=== PATIENT | female | born 1935 | race Caucasian/White ===

== ENCOUNTER 2019-05-18 09:59 | Outpatient (CLI) | payer MEDICARE, SELFPAY ==
--- NOTE | ~2019-05-18 | NM_ITS ---
EXAMINATION: NM daniella stress w perfusion DATE: 05/18/2019 13:13 INDICATION: Dyspnea on exertion. TECHNIQUE: Rest images were obtained following intravenous administration of 9.4 mCi Tc99m tetrofosmi n (Myoview). The patient was infused intravenously with Lexiscan (regadenoson). Then, 27.5 mCi Tc99m tetrofosmin (Myoview) was administered intravenously, and stress images were obtained. Data was recon structed into short axis and horizontal and vertical long axis SPECT images. Gated SPECT images were also obtained. COMPARISON: None. FINDINGS: There is no definite reversible or fixed perfusion abnormality to suggest ischemia or infar ction. There is no segmental wall motion abnormality. Left ventricular ejection fraction measures > 70%. IMPRESSION: 1. No definite ischemia or infarct. 2. Normal left ventricular ejection fraction measuring >70%. Reviewed, dictated and finalized at location A. UCTION CONTROL PLANNER
--- NOTE | 2019-05-18 10:56 | EST_ITS ---
Patient Info Name: Sadaf Pryor Age: 84 years : 1935 Gender: Female Ht: 64 in Wt: 138 lbs BSA: 1.69 m2 Exam Date: 05/18/2019 11:55 AM Exam Location: [facility] Stress Patient Status: Outpatient Admit Date: 05/18/2019 Staff Ordering Physician: Jas Graham PA-C Attending Provider: Jas Graham PA-C Exercise Technologist: Viki Little RDCS Exercise Physician: Golden Elam DO Exam Type: CA stress daniella w NM Study Info Indications R06.00 - Dyspnea, unspecified A regadenoson stress test was performed. Summary 1. 1. Negative Lexiscan stress test for ischemic ST changes by ECG criteria. 2. 2. Baseline hypertension. 3. 3. Nuclear scan to follow and will be reported separately. Please correlate with it. 4. 4. Patient informed of the above results. Protocol: Lexiscan Stress ECG Details Stage: REST Duration (min): 8 min : 20 sec HR (bpm): 67 SBP (mmHg): 167 DBP (mmHg): 89 Stage: REST Duration (min): 8 min : 54 sec HR (bpm): 70 SBP (mmHg): 167 DBP (mmHg): 89 Stage: STAGE 1 Duration (min): 1 min : 0 sec HR (bpm): 82 SBP (mmHg): 167 DBP (mmHg): 89 Stage: RECOVERY Duration (min): 1 min : 0 sec HR (bpm): 95 SBP (mmHg): 167 DBP (mmHg): 89 Stage: RECOVERY Duration (min): 2 min : 0 sec HR (bpm): 93 SBP (mmHg): 140 DBP (mmHg): 77 Stage: RECOVERY Duration (min): 3 min : 0 sec HR (bpm): 90 SBP (mmHg): 144 DBP (mmHg): 79 Stage: RECOVERY Duration (min): 3 min : 25 sec HR (bpm): 95 SBP (mmHg): 144 DBP (mmHg): 79 Rest HR: 70 bpm Peak HR: 99 bpm Rest Sys BP: 167 mmHg Peak Sys BP: 144 mmHg Max Pred HR: 136 bpm % Max Pred HR: 73 % Target HR: 116 bpm Max RPP: 14,256 bpm*mmHg Termination Reason: Completed protocol Cardiac Symptoms: Shortness of breath Total Time: 1 min : 0 sec Rest Bhakta BP: 89 mmHg Peak Bhakta BP: 79 mmHg Total Dose: 0.4 mg Resting ECG Sinus rhythm. Stress ECG No ST changes. Arrhythmias None. Report Signatures
== END 2019-05-18 10:00 | disposition home or self-care (01) ==
PROVIDERS: PCP Family Medicine; Visit Provider Physician Assistant Medical
DX: R06.02 Shortness of breath (principal); I10 Essential (primary) hypertension
CPT/HCPCS: 78452; 93017; A9502; J2785

== ENCOUNTER 2019-12-08 13:14 | Outpatient (CLI) | payer MEDICARE, SELFPAY ==
--- NOTE | ~2019-12-08 | DEXA_ITS ---
Bone Density Report Name: Sadaf Pryor Age: 84 Sex: Female Ethnicity: White Date of : 1935 Indication: postmenopausal osteoporosis; Referring Provider: RAZIA PEDERSEN Study: Bone densitometry was performed. Exam Date: December 08, 2019 Accession number: [id number] Bone Density: Region BMD T-score Z-score Classification AP Spine (L1-L4) 0.819 -2.1 0.8 Osteopenia Femoral Neck (Left) 0.671 -1.6 0.9 Osteopenia Total Hip (Left) 0.796 -1.2 1.1 Osteopenia Total Hip Bilateral Avg 0.794 -1.2 1.1 Osteopenia Femoral Neck (Right) 0.651 -1.8 0.7 Osteopenia Total Hip (Right) 0.790 -1.2 1.1 Osteopenia World Health Organization criteria for BMD impression classify patients as: Normal (T-score at or above -1.0), Osteopenia (T-score between -1.0 and -2.5), or Osteoporosis (T-score at or below -2.5). 10-year Fracture Risk(1): Major Osteoporotic Fracture 14% Hip Fracture 4.1% Reported Risk Factors: [place] (), Neck BMD=0.651, BMI=23.7 (1) FRAX(R) Version 3.08. Fracture probability calculated for an untreated patient. Fracture probability may be lower if the patient has received treatment. Previous Exams: Region Exam Age BMD T-score BMD Change BMD Change Date g/cm2 vs Baseline vs Previous AP Spine(L1-L4) 12/08/2019 84 0.819 -2.1 0.033(4.3%)* 0.052(6.8%)* 02/20/2013 78 0.766 -2.6 -0.019(-2.4%) -0.019(-2.4%) 02/18/2011 76 0.785 -2.4 Total Hip(Left) 12/08/2019 84 0.796 -1.2 -0.100(-11.2%) -0.055(-6.5%)* 02/20/2013 78 0.851 -0.7 -0.045(-5.0%)* -0.045(-5.0%)* 02/18/2011 76 0.896 -0.4 Total Hip(Right) 12/08/2019 84 0.790 -1.2 0.000(0.0%) 0.009(1.2%) 02/20/2013 78 0.781 -1.3 -0.009(-1.1%) -0.009(-1.1%) 02/18/2011 76 0.789 -1.3 *Denotes significance at 95% confidence level, LSC for AP Spine = 0.022 g/cm2, LSC for Total Hip = 0.027 g/cm2 Clinical Information Provided by Patient: Has used the following medications: Fosamax (i.e. alendronate), Vitamin D, Calcium Patient maximum height was 64 Menopause Age: 50 Drinks caffeinated beverages Onset of menses at age 13 Number of children 2 Impression: The patient has low bone mass, based on the Total Spine T-score. The patient has an estimated ten-year risk of hip fracture of 4.1% and an estimated ten-year risk of major fracture of 14%, based on the WHO FRAX algorithm. The BMD for the Total Hip(Left) decreased, changing by -6.5% s
== END 2019-12-08 13:15 | disposition home or self-care (01) ==
PROVIDERS: PCP Family Medicine; Visit Provider Family Medicine
DX: Z78.0 Asymptomatic menopausal state (principal); M85.89 Other specified disorders of bone density and structure, multiple sites
CPT/HCPCS: 77080

== ENCOUNTER → 2020-04-11 10:55 | Outpatient (CLI) | payer MEDICARE, SELFPAY ==
--- NOTE | ~2020-04-11 | US_ITS ---
EXAMINATION: US pelvic complete w TV EXAM DATE: 04/11/2020 12:14 INDICATION: N95.0 - Postmenopausal bleeding TECHNIQUE: Pelvic transabdominal and transvaginal sonogram was performed. There are multiple graysca le and Doppler images available for interpretation. There is no prior study for comparison. FINDINGS: There is complex cystic pelvic mass measuring about 4 x 5 cm. No normal uterus is specifica lly identified. This potentially could be a uterine mass or endometrial cancer. Less likely ovarian h istology displacing uterus so it is not well seen. Can't identify any morphologically normal ovaries. IMPRESSION: Complex cystic pelvic mass, possibly uterine, endometrial or ovarian cancer. Consider CT or MRI pelvis, with contrast if patient is able. Reviewed, dictated and finalized at location B. ER ENGINEER IMPRESSION: Complex cystic pelvic mass, possibly uterine, endometrial or ovaria n cancer. Consider CT or MRI pelvis, with contrast if patient is able.
== END ==
PROVIDERS: PCP Family Medicine; Visit Provider Physician Assistant Medical
DX: N95.0 Postmenopausal bleeding (principal)
CPT/HCPCS: 76830; 76856

== ENCOUNTER → 2022-05-11 09:31 | Outpatient (CLI) | payer MEDICARE, SELFPAY ==
--- NOTE | ~2022-05-11 | DEXA_ITS ---
Bone Density Report Name: NOAH BROOKS Age: 87 Sex: Female Ethnicity: White Date of : 1935 Indication: postmenopausal osteoporosis; monitoring treatment; Referring Provider: RAZIA PEDERSEN Study: Bone densitometry was performed. Exam Date: May 11, 2022 Accession number: [id number] Bone Density: Region BMD T-score Z-score Classification AP Spine (L1-L4) 0.744 -2.8 0.1 Osteoporosis Femoral Neck (Left) 0.666 -1.6 0.9 Osteopenia Total Hip (Left) 0.812 -1.1 1.3 Osteopenia Femoral Neck (Right) 0.699 -1.4 1.2 Osteopenia Total Hip (Right) 0.708 -1.9 0.4 Osteopenia Total Hip Mean 0.760 -1.5 0.9 Osteopenia World Health Organization criteria for BMD impression classify patients as: Normal (T-score at or above -1.0), Osteopenia (T-score between -1.0 and -2.5), or Osteoporosis (T-score at or below -2.5). 10-year Fracture Risk: FRAX not reported because: Some T-score for Spine Total or Hip Total or Femoral Neck at or below -2.5 Treated for osteoporosis Previous Exams: Region Exam Age BMD T-score BMD Change BMD Change Date g/cm2 vs Baseline vs Previous AP Spine(L1-L4) 05/11/2022 87 0.744 -2.8 -0.039* -0.020 04/21/2017 82 0.764 -2.6 -0.019 -0.001 02/25/2015 80 0.766 -2.6 -0.018 -0.018 01/02/2009 73 0.784 -2.4 Total Hip(Left) 05/11/2022 87 0.812 -1.1 -0.081* -0.013 04/21/2017 82 0.825 -1.0 -0.068* -0.021 02/25/2015 80 0.846 -0.8 -0.046* -0.046* 01/02/2009 73 0.893 -0.4 Total Hip(Right) 05/11/2022 87 0.708 -1.9 -0.126* -0.044* 04/21/2017 82 0.752 -1.6 -0.082* -0.028* 02/25/2015 80 0.780 -1.3 -0.053* -0.053* 01/02/2009 73 0.834 -0.9 *Denotes significance at 95% confidence level, LSC for AP Spine = 0.022 g/cm2, LSC for Total Hip = 0.027 g/cm2 Clinical Information Provided by Patient: Is being treated for osteoporosis Has used the following medications: Fosamax (i.e. alendronate), Vitamin D, Calcium, MTV Patient maximum height was 64.5 Menopause Age: 52 No regular weight bearing exercise Drinks caffeinated beverages Onset of menses at age 13 Number of children 2 Impression: The patient has osteoporosis, based on the Total Spine T-score. The BMD for the Total Hip(Right) decreased, changing by -0.044 since the last DXA exam. Jose Guadalupe
== END ==
PROVIDERS: PCP Family Medicine; Visit Provider Family Medicine
DX: M81.0 Age-related osteoporosis without current pathological fracture (principal); M85.89 Other specified disorders of bone density and structure, multiple sites
CPT/HCPCS: 77080

== ENCOUNTER 2023-05-28 10:04 | Outpatient (CLI) | payer MEDICARE, SELFPAY ==
--- NOTE | ~2023-05-28 | MR_ITS ---
EXAMINATION: MR brain IAC wo con DATE: 05/28/2023 11:41 INDICATION: Ataxia, unspecified. TECHNIQUE: Magnetic resonance imaging (MRI) of the brain, brainstem, and internal auditory canals was performed without intravenous contrast. COMPARISON: Brain MRI 06/30/2016, head CT 06/30/2016 FINDINGS: There are scattered areas of low attenuation in the cerebral white matter, which is within normal limits for the patient's age. There is no intracranial hemorrhage, acute infarction, or abnorm al intracranial mass lesion. The ventricles are normal in size. There are likely changes of ocular le ns replacement surgeries. There is mild mucosal thickening in the ethmoid sinuses. The mastoid air ce lls are normal. The internal auditory canals, inner ears, and tympanic cavities are normal. IMPRESSION: 1. Normal aging brain. Reviewed, dictated and finalized at location A. O EFFECTS EDITOR IMPRESSION: 1. Normal aging brain.
--- NOTE | 2023-05-28 12:20 | ECHO_ITS ---
Patient Info Name: Sadaf Pryor Age: 88 years : 1935 Gender: Female Ht: 64 in Wt: 138 lbs BSA: 1.69 m2 HR: 78 bpm BP: 165 / 75 mmHg Technical Quality: Fair Exam Date: 05/28/2023 12:29 PM Exam Location: Echo Lab Patient Status: Outpatient Admit Date: 05/28/2023 Staff Ordering Physician: Sudhakar Winter MD Finisher Map And Chart: Sheela Quiñonez RDCS Attending Provider: Sudhakar Winter MD Referring Physician: Maggy CARVER; Exam Type: CA echo doppler color flow Study Info Indications I10 - Essential (primary) hypertension Complete two-dimensional, color flow and Doppler transthoracic echocardiogram is performed. Summary 1. Complete two-dimensional, color flow and Doppler transthoracic echocardiogram is performed. 2. Left ventricular chamber dimension is normal. 3. Left ventricular systolic function is normal, estimated at 65-70%. 4. The left ventricular diastolic function is grade I diastolic dysfunction. 5. E/e' 13 is mildly elevated. 6. Left atrial chamber dimension is mildly enlarged. 7. There is mild mitral valve regurgitation. 8. There is trace tricuspid valve regurgitation. 9. No pulmonary hypertension, estimated pulmonary arterial systolic pressure is 25 mmHg. Left Ventricle E/e' 13 is mildly elevated. Left ventricular chamber dimension is normal. Left ventricular systolic function is normal, estimated at 65-70%. The left ventricular diastolic function is grade I diastolic dysfunction. Right Ventricle Right ventricular chamber dimension is normal. Right ventricular systolic function is normal. Left Atria Left atrial chamber dimension is mildly enlarged. Right Atria Right atrial chamber dimension is normal. Aortic Valve The aortic valve is trileaflet. There is no aortic valve stenosis. There is no aortic valve regurgitation. Pulmonic Valve There is no pulmonic regurgitation. Mitral Valve There is no mitral valve stenosis. There is mild mitral valve regurgitation. Tricuspid Valve There is trace tricuspid valve regurgitation. No pulmonary hypertension, estimated pulmonary arterial systolic pressure is 25 mmHg. Pericardium/Pleural There is no pericardial effusion. Inferior Vena Cava Normal inferior vena cava with >50% collapse upon inspiration consistent with normal right atrial pressure, 5 mmHg. Aorta The aortic root size at the sinus of Valsalva is normal. Left Ventricular Outflow Tract Name Value Normal LVOT 2D LVOT Diameter 2.0 cm LVOT Doppler LVOT Peak Gradient 5 mmHg LVOT Mean Gradient 3 mmHg LVOT VTI 25 cm LVOT VTI/AV VTI Ratio 1.0 LVOT Stroke Volume 76 ml LVOT CO 15.2 l/min LVOT CI 9.0 l/min/m2 Pulmonic Valve Name Value Normal RVOT Doppler RVOT Peak Gradient 1 mmHg
== END 2023-05-28 10:05 | disposition home or self-care (01) ==
PROVIDERS: PCP Family Medicine; Visit Provider Family Medicine
DX: R27.0 Ataxia, unspecified (principal); R41.82 Altered mental status, unspecified; R42 Dizziness and giddiness; I10 Essential (primary) hypertension; I34.0 Nonrheumatic mitral (valve) insufficiency
CPT/HCPCS: 70551; 93306

== ENCOUNTER 2024-05-10 09:24 | Outpatient (CLI) | payer MEDICARE, SELFPAY ==
--- OUTSIDE RECORDS SUMMARY | 2024-05-10 10:04 | XMS_ITS | Continuity of Care Document ---
Author Organization [facility] Address [address] [place] [address] [place] [address] Phone Care Team Providers Care Back Wedger Name Role Phone Jose F Velez Unavailable Unavailable Procedures Procedure Date Office/outpatient Visit, Est Office/outpatient Visit, Est Office/outpatient Visit, Est Office/outpatient Visit, Est Advance Directives Directive Yes / No Effective Date File Name No Information Encounters Encounter Description Practice Location Reason(s) For Visit Diagnoses Date Provider Providers Copied on Encounter Office/outpat ient Visit, [facility], [address] [place] [address] [address], [place], [place], [id number], tel:[phone] [address] [facility] No Information [phone] [facility] , [address], [place], [place], [facility], . tel:[phone] Office/outpat ient Visit, [facility], [address] [place] [address] [address], [place], [place], [id number], [place] tel:[phone] [facility] No Information [address] [facility] , [address], [place], [place], [facility], . tel:[phone] Office/outpat ient Visit, [facility], [address] [place] [address] [address], [place], [place], [id number], tel:[phone] [facility] No Information Harsh-[phone] [facility] , [address], [place], [address], [place]. tel:[phone] Office/outpat ient Visit, [facility], [address], [place], [place], [id number], [place] tel:[phone] [facility] No Information Harsh-[phone] [facility] , [address], [place], [address], [place]. tel:[phone] Family History Family Member Type Diagnosis Age At Onset No Information Payers Payer name Insurance type Covered republican ID Authoriza timagdaleno(s) [employer] [id number] Written Refer ral Social History Type Description Quantity Date Captured Comments Sex Female Smoking Status No Information Chief Complaint And Reason For Visit No Information Reason For Referral Reason For Referral No Information History Of Present Illness Encounter Date Complaint History Of Prese nt Illness No Information Functional Status Date Functional Assessmen t No Information Instructions Date Instruction Additional Infor mation No Information Assessments Type Assessment Date No Information Patient Care Teams Name Effective Dates (start - stop) Status Members No Information
--- OUTSIDE RECORDS SUMMARY | 2024-05-10 10:04 | XMS_ITS | Clinical Summary ---
Author Organization [facility] Address [address] [place] [address] Care Team Providers Care Hot Dip Plater Name Role Phone Sudhkaar Winter MD Primary Care Provider [phone] Sudhakar Winter MD Unavailable [phone] Allergies No known active allergies Medications alendronate (FOSAMAX) 70 mg tabletIndications :osteopenia Take 70 mg by mouth every morning 1 Active atorvastatin (LIPITOR) 80 mg tabletIndications :hyperlipidemia Take 80 mg by mouth nightly [address] (PROTONIX) 40 mg EC tabletIndications :GERD Take 40 mg by mouth nightly 1 Active Janumet 50-1,000 mg per tabletIndications :type 2 diabetes mellitus Take 1 tablet by mouth 2 (two) times a day with meals 1 Active telmisartan (MICARDIS) 40 mg tabletIndications :hypertension Take 40 mg by mouth every morning Active calcium citrate (CALCITRATE) 950 mg (200 mg elemental) tabletIndications :Post-Menopausal Osteoporosis Prevention Take 1 tablet by mouth every morning Active multivitamin-mine rals-lutein tabletIndications :health Take 1 tablet by mouth every morning Active glucosamine-chond roitin 250-200 mg tabletIndications :joint comfort Take 1 tablet by mouth every morning Active acetaminophen (TYLENOL) 500 mg tablet Take 1 tablet (500 mg total) by mouth every 6 (six) hours as needed for pain 30 tablet 1 Active ibuprofen (ADVIL,MOTRIN) 600 mg tablet Take 1 tablet (600 mg total) by mouth every 6 (six) hours as needed for pain 30 tablet 1 Active docusate sodium (COLACE) 100 mg capsuleIndication s:constipation Take 1 capsule (100 mg total) by mouth 2 (two) times a day 60 capsule 1 Active Invokana 100 mg tablet 1 Active Active Problems Problem Noted Date Diagnosed Date Hematometra 05/08/2020 Overview (05/08/2020): Added automatically from request for surgery [id number] Chronic venous insufficiency 08/12/2013 Overview (07/03/2016): VENOUS INSUFFICIENCY NOS Degeneration of intervertebral disc 08/12/2013 Overview (07/03/2016): DISC DEGENERATION NOS Type 2 diabetes mellitus 05/04/2006 Overview (07/03/2016): DMII WO CMP NT ST UNCNTR Osteopenia 05/04/2006 Overview (07/03/2016): OSTEOPENIA Hyperlipidemia 05/04/2006 Overview (07/03/2016): HYPERLIPIDEMIA NEC/NOS Immunizations Name Administration Dates Next Due Influenza, Quadrivalent, Rec ombinant, Egg Free, Preservative Free, Intramuscular 01/02/2020,01/05/2019 Influenza, Trivalent, High D ose, Split, Preservative Free, Intramuscular 01/07/2018 Pneumococcal Polysaccharide PPV23 04/02/2004 Surgical History Surgery Date Site/Laterality Comments BREAST BIOPSY Breast biopsy OTHER SURGICAL HISTORY urethral prolapse: nl cystoscopy BREAST LUMPECTOMY 2003 left breast lumpectomy Medical History Medical History Date Comments Hx Other Medical Patellofemoral disease Hx Other Medical Cataracts Hx Other Medical Agorophobia Hx Other Medical GERD/esophagiti s Hx Other Medical Possible TMJ Hx Other Medical 2004 Int roids Hx Other Medical 2006 Zoster V1 distr ibution Hx Other Medical 2003 urethral prolap se Hx Other Medical 2000 knee OA Diabetes mellitus (HCC) Hypertension Hypercholesteremia Family History Medical History Relation Name Comments Diabetes Father Other Father ; Other Mother ; Other Other 4 No family histo ry of Cancer -colon; Other Other 5 No family histo ry of Diabetes mellitus; Other Other 6 No family histo ry of Cancer -breast; Anesthesia problems Neg Hx Relation Name Status Comments Father Mother Other 1 Alive Other 2 Alive Other 3 Alive Other 4 Other 5 Other 6 Social History Tobacco Use Types Packs/Day Years Used Date Smoking Tobacco: Never Smokeless Tobacco: Never Alcohol Use Standard Drinks/Week Comments Never 0 (1 standard drink = 0.6 oz pur e alcohol) AUDIT-C Answer Date Recorded Q1: How often do you have a drink containing alc ohol? 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 Gender Identity Not on file Sexual Orientation Not on file Obstetrics History Para Term AB IAB SAB Ectopic Multiple Livin g Live Births 2 2 2 1 2 Date Outcome GA Total Labor Labor/2nd/3rd Weight Sex Type Anes PTL Tatiana A1 A5 Name Clin Term Term Last Filed Vital Signs Vital Sign Reading Time Taken Comments Blood Pressure 144/75 01/22/2021 12:04 PM CDT Pulse 86 01/22/2021 12:04 PM CDT Temperature 36.8 C (98.3 F) 01/22/2021 12:04 PM CDT Respiratory Rate 16 01/22/2021 12:0 4 PM CDT Oxygen Saturation 97% 01/22/2021 12: 04 PM CDT Inhaled Oxygen Concentration - - Weight 62.9 kg (138 lb 11.2 oz) 021 12:04 PM CDT Height 162 cm (5' 3.78 ) 01/22/2021 12: 04 PM CDT Body Mass Index 23.97 01/22/2021 12:04 PM CDT Plan of Treatment Not on file Insurance [facility] MDCR HMO REF Advance Directives For more information, please contact: [phone] * LIMITED - No CPR (Latest Code Status on File) Date Activated Date Inactivated Comments 05/17/2020 7:19 AM 05/18/2020 4:53 PM Question Answer Comments Provide aggressive medical m anagement before a full cardiopulmonary arrest occurs. Use antibiotics, IV Fluids, and medical treatment unless specifically selected below: No intubation * Full Code Date Activated Date Inactivated Comments 05/16/2020 6:06 PM 05/17/2020 7:19 AM * LIMITED - No CPR Date Activated Date Inactivated Comments 05/16/2020 4:53 PM 05/16/2020 6:06 PM Question Answer Comments Provide aggressive medical m anagement before a full cardiopulmonary arrest occurs. Use antibiotics, IV Fluids, and medical treatment unless specifically selected below: No intubationNo cardioversion Care Teams Hot Dip Plater Relationship Specialty Start Date End Date Sudhakar Winter MD PCP - General Family Medicine 04/17/20 Sudhakar Winter MD Referring Physician Family Medicine 07/24/20
--- OUTSIDE RECORDS SUMMARY | 2024-05-10 10:04 | XMS_ITS | Referral Summary ---
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 Gender Identity Not on file Sexual Orientation Not on file Last Filed Vital Signs Vital Sign Reading [...] Plan of Treatment Not on file Insurance [facility] HMO REF [facility] MDCR HMO REF Advance Directives For more information, please contact: [phone] * LIMITED - No CPR (Latest Code [...] selected below: No intubationNo cardioversion Care Teams General Passenger Agent Relationship Specialty Start Date End Date Sudhakar Winter MD PCP - General Family Medicine 04/17/20 Sudhakar Winter MD Referring Physician Family Medicine 07/24/20
[2024-05-10 18:22] LABS: Alanine Aminotransferase 22 U/L (6-35); Albumin Level 4.1 g/dL (3.5-5.1); Alkaline Phosphatase 76 U/L (38-126); Anion Gap 11 mmol/L (4-12); Aspartate Amino Transferase 36 U/L (14-36); Bilirubin,Total 1.1 mg/dL (0.2-1.3); Blood Urea Nitrogen 15 mg/dL (7-17); Calcium 9.6 mg/dL (8.4-10.2); Carbon Dioxide 27 mmol/L (22-30); Chloride 99 mmol/L (98-107); Cholesterol 106 mg/dL (0-200); Estimated Glomerular Filt Rate > 60; Glucose 117 mg/dL (65-110); HDL Direct 41 mg/dL; Potassium 4.4 mmol/L (3.4-5.0); Sodium 137 mmol/L (137-145); Triglycerides 136 mg/dL (<150)
[2024-05-10 18:30] LABS: LDL Cholesterol Direct 41 mg/dL
[2024-05-10 18:58] LABS: Hemoglobin A1C 7.8 % (<5.7)
== END 2024-05-10 09:25 | disposition home or self-care (01) ==
PROVIDERS: PCP Family Medicine; Visit Provider Family Medicine
DX: E11.21 Type 2 diabetes mellitus with diabetic nephropathy (principal)
CPT/HCPCS: 36415; 80053; 80061; 83036

== ENCOUNTER 2024-05-15 10:02 | Outpatient (NON) | payer MEDICARE, SELFPAY ==
--- OUTSIDE RECORDS SUMMARY | 2024-05-15 12:55 | XMS_ITS | Clinical Summary ---
Author Organization [facility] Address [address] [place] [address] Care Team Providers Care Email Production Consultant Name Role Phone Sudhakar Winter MD Primary Care Provider [phone] Sudhakar Winter MD Unavailable [phone] Allergies No known active allergies Medications alendronate [...] (05/08/2020): Added automatically from request for surgery [id number] Chronic venous insufficiency 08/12/2013 Overview (07/03/2016): VENOUS INSUFFICIENCY NOS Degeneration of intervertebral disc 08/12/2013 Overview (07/03/2016): DISC DEGENERATION NOS Type 2 diabetes mellitus 05/04/2006 Overview (07/03/2016): DMII WO CMP NT ST UNCNTR Osteopenia 05/04/2006 Overview (07/03/2016): OSTEOPENIA Hyperlipidemia 05/04/2006 Overview (07/03/2016): HYPERLIPIDEMIA NEC/NOS Immunizations Immunization Administration Dates Next Due Influenza, Quadrivalent, Rec [...] on file 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
--- OUTSIDE RECORDS SUMMARY | 2024-05-15 12:55 | XMS_ITS | Referral Summary ---
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 Gender Identity Not on file Sexual Orientation [...] Plan of Treatment Not on file Insurance [facility] MEDICARE Address: [address] [address] [facility] HMO REF [facility] MEDIC[facility] Address: [address] [address] [place] [address] [facility] MDCR HMO REF [facility] MEDIC[facility] Address: [address] [address] [place] [address] Advance Directives For more information, please contact: [phone] * LIMITED - No CPR (Latest Code [...] selected below: No intubationNo cardioversion Care Teams Medicare Coordinator Relationship Specialty Start Date End Date Sudhakar Winter MD PCP - General Family Medicine 04/17/20 Sudhakar Winter MD Referring Physician Family Medicine 07/24/20
--- OUTSIDE RECORDS SUMMARY | 2024-05-15 12:55 | XMS_ITS | Continuity of Care Document ---
Author Organization [facility] Address [address] [place] [address] [place] [address] Phone Care Team Providers Care Chemical Laboratory Technician Name Role Phone Jose F Velez Unavailable Unavailable Procedures Procedure Date Office/outpatient Visit, Est Office/outpatient Visit, Est Office/outpatient Visit, Est Office/outpatient Visit, Est Advance Directives Directive Yes / No Effective Date File Name No Information Encounters Encounter Description Practice Location Reason(s) For Visit Diagnoses Date Provider Providers Copied on Encounter Office/outpat ient Visit, [facility] [place] [address] [place] [address] [address], [place], [place], [id number], tel:[phone] [facility] No Information [phone]. [address] , [address], [place], [place], [facility], . tel:[phone] Office/outpat ient Visit, [facility] [place], [address] [place] [address] [address], [place], [place], [id number], [place] tel:[phone] [facility] No Information [phone] Rosie Kohler. [address] , [address], [place], [place], [facility], . tel:[phone] Office/outpat ient Visit, [facility] [place], [address] [place] [address] [address], [place], [place], [id number], tel:[phone] [facility] No Information Harsh-[phone] Rosie Edbebo. [address] , [address], [place], [address], [place]. tel:[phone] Office/outpat ient Visit, [facility], [address], [place], [place], [id number], [place] tel:[phone] [facility] No Information Harsh-[phone] Rosie [address]ler. [address] , [address], [place], [address], [place]. tel:[phone] Family History Family Member Type Diagnosis Age At Onset No Information Payers Payer name Insurance type Covered green party ID Authoriza timagdaleno(s) [employer] [id number] Written Refer ral Social History Type Description [...]
[2024-05-15 15:04] LABS: Creatinine Urine 48.1 mg/dL
[2024-05-15 15:09] LABS: MALB Creatinine Ratio 12.7 mg/g (0-30); Microalbumin Urine Random 6.1 mg/L (0-16.7)
== END 2024-05-15 10:03 | disposition home or self-care (01) ==
LOC: ANHGOSHLAB 10:03
PROVIDERS: PCP Family Medicine; Visit Provider Family Medicine
DX: E11.9 Type 2 diabetes mellitus without complications (principal)
CPT/HCPCS: 82043